=== PATIENT | male | born 1960 | race Caucasian/White ===

== ENCOUNTER 2024-07-12 02:14 | Observation (INO) | payer BC, SELFPAY ==
[2024-07-11 17:20] VITALS: BP 163/104
[2024-07-11] MEDS: NSS 1000 IV (18:29)
[2024-07-11] MEDS: ZOFRAN 4 MG IV (18:30)
[2024-07-11] MEDS: TORADOL 15 MG IV (18:30)
[2024-07-11 18:44] LABS: % Basophils 0.2 % (0-2); % Eosinophils 0.1 % (0-6); % Immature Granulocytes 0.3 % (0-0.5); % Lymphocytes 9.6 % (20.5-51.1); % Monocytes 5.8 % (1.7-9.3); Absolute Lymphocytes 1.4 10^3/uL (1.2-3.4); Absolute Monocytes 0.8 10^3/uL (0.1-0.6); Hematocrit 44.4 % (39.0-52.0); Mean Corp Hgb Conc. 33.8 g/dL (33.0-37.0); Mean Corpuscular Hgb 30.6 pg (27.0-31.0); Mean Corpuscular Volume 90.6 fL (80.0-94.0); Mean Platelet Volume 9.6 fL (7.4-10.4); Nucleated Red Blood Cells % 0 % (-); Platelet Count 217 10^3/uL (130-400); Red Cell Dist. Width 12.8 % (11.5-14.5); White Blood Cell Count 14.3 10^3/uL (4.8-10.8)
[2024-07-11 19:00] LABS: ALT (SGPT) 30 U/L (0-50); AST (SGOT) 32 U/L (17-59); Albumin 4.4 g/dl (3.5-5.0); Alkaline Phosphatase 77 U/L (38-126); Blood Urea Nitrogen 10 mg/dl (9-20); Calcium 9.2 mg/dl (8.4-10.2); Carbon Dioxide 24 mmol/L (22-30); Chloride 101 mmol/L (98-107); Glucose 114 mg/dl (70-99); Potassium 4.3 mmol/L (3.5-5.1); Sodium 134 mmol/L (135-145); Total Bilirubin 1.2 mg/dl (0.2-1.3); Total Protein 7.2 g/dl (6.3-8.2); eGFR > 60.00
--- NOTE | 2024-07-11 19:03 | ED.GENMED ---
History of Present Illness
General
Chief Complaint: Abdominal Pain
Source: patient and spouse
Exam Limitations: none
Time Seen by Provider: 07/11/24 18:10
Nursing documentation reviewed up to this point in time: agreed with
History of Present Illness
History of Present Illness:
64-year-old male presenting to the emergency department today with concerns of right-sided flank pain that was abrupt in onset earlier this morning. Now some pain of the abdomen some bloating some nausea no vomiting. Had similar symptoms a week
ago that seem to resolve on its own. Denies any chest pain shortness of breath fevers.
Review of Systems
Review of Systems
Allergies reviewed?: Yes
All Other Systems: ROS reviewed and negative except as documented in HPI and ROS
Phy Exam
Physical Exam
Physical Exam:
GENERAL: Alert , in no apparent distress
EYE: pupils equal and reactive
NECK: Supple, no significant adenopathy.
ENT: o/p clr, mmm.
CARDIAC: Regular rate and rhythm .
LUNGS: Clear breath sounds bilaterally, no acute respiratory distress, no wheezes/rales/rhonchi
ABDOMEN: Soft, without focal tenderness, no r/g, no cvat
NEUROLOGICAL: Alert and oriented, no focal neuro deficits
SKIN: Warm and dry, skin intact.
MUSCULOSKELETAL: No edema, well perfused.
PSYCH: Normal and appropriate interaction.
Course
Orders/Labs/Results
Orders:
Orders
07/11/24 17:24
EKG [Electrocardiogram (*1)] Urgent
Reason for Study: Abdominal Pain
EKG- Treatment ONCE
07/11/24 18:21
CT Abd/pel Without Iv Or Oral Urgent
Comment:
Reason For Exam: right flank pain
0.9% Sodium Chloride 1000 ml [Nss] 1,000 ml IV BOLUS
Ketorolac [Toradol] 15 mg IV NOW STA
Ondansetron Injectable [Zofran] 4 mg IV NOW STA
07/11/24 18:28
Complete Blood Count/With Diff Urgent
Comprehensive Metabolic Panel Urgent
07/11/24 20:17
Urinalysis Reflex To Culture Urgent
Date Specimen was Collected: 07/11/24
Time Specimen was Collected: 20:15
Urine Microscopic Reflex Cult Urgent
07/11/24 21:36
US Abdomen Complete/Upper Urgent
Comment:
Reason For Exam: abdnomal CT GB
07/11/24 23:56
CefTRIAXone [Rocephin] 2,000 mg IV NOW STA
MetroNIDAZOLE 500 MG/100 ML [Flagyl 500 mg] 100 ml IV NOW
Abnormal Lab Results
07/11/24 07/11/24
18:28 20:17
WBC 14.3 H 10^3/uL
(4.8-10.8)
Absolute Neuts (auto) 12.0 H 10^3/uL
(1.4-6.5)
Absolute Monos (auto) 0.8 H 10^3/uL
(0.1-0.6)
Neutrophils % 84.0 H %
(42.2-75.2)
Lymphocytes % 9.6 L %
(20.5-51.1)
Sodium 134 L mmol/L
(135-145)
Glucose 114 H mg/dl
(70-99)
Urine Ketones 3+ A
(Negative)
Ur Occult Blood Reflex 1+ A
(Negative)
Urine Albumin (Reflex) 1+ A
(Neg - Trace)
07/11/24 18:28
07/11/24 18:28
Vital Signs
Initial and Last Documented VS:
Initial Vital Signs
Temp Pulse Resp BP Pulse Ox
98.1 F 82 16 163/104 98
07/11/24 17:20 07/11/24 17:20 07/11/24 17:20 07/11/24 17:20 07/11/24 17:20
Last Documented Vital Signs
Temp Pulse Resp BP Pulse Ox
98.1 F 82 16 135/82 98
07/11/24 17:20 07/11/24 17:20 07/11/24 17:20 07/11/24 20:18 07/11/24 17:20
MDM/Problems Addressed
MDM/Problems Addressed:
64-year-old male presenting to the emergency department today with concerns of right flank discomfort described as sharp and abrupt earlier this morning. Otherwise some abdominal pain associated with the additional nausea no vomiting. Here patient
is uncomfortable but nothing reproducible. Labs and CT scan ordered for further assessment. CT scan showing possible cholecystitis. Ultrasound ordered for further assessment which showed also some inflammation to the gallbladder with concerns for
possible early acute cholecystitis. Patient did have some minimal symptoms on examination of the right upper quadrant but nothing severe on my assessed to admit for observation and surgical assessment.
*Critical Care Note
Total Time (30-74mins, 75-104mins- exclusive of procedures): Not Applicable
ED Attending Note
-
Portions of this chart may have been created with voice recognition software.� Occasional wrong word or��sound alike� substitutions may have occurred due to the inherent limitations of voice recognition software.
Discharge Plan
Departure
Patient Disposition: Admit
Date of Disposition: 07/12/24
Time of Disposition: 00:20
Admit to: Med/Surg
Admit to doctor: Memo
Presentation/result/management discussed w/ accepting MD/DO: Gen surgery
Patient with high blood pressure during this ER visit?: No
Condition: Good
Covid-19: Not Applicable
Discharge Problem:
Acute cholecystitis
Referrals:
Gay Collins MD [Family Provider] -
Interventions
Interventions:
*Risk Screen - Suicide Last Done: 07/11/24 17:20
*General Assessment Last Done: 07/11/24 18:11
*Neglect/Abuse Screening Last Done: 07/11/24 17:20
ED- Fall Risk Assessment Last Done: 07/11/24 18:11
YJ-Irpuqm-Eseavjxuoe Assessment Last Done: 07/11/24 18:11
Discharge Date and Time
Print Language: GREEK
--- NOTE | 2024-07-11 20:00 | EDRN ---
Report received, patient resting reports pain is better, aware he should go to CT shortly, was able to obtain a urine specimen
[2024-07-11 20:18] VITALS: BP 135/82; BMI 26.6
[2024-07-11 20:27] LABS: Urine Albumin 1+ (Neg - Trace); Urine Bilirubin Negative (Negative); Urine Character Clear (Clear); Urine Color Yellow; Urine Glucose Negative (Negative); Urine Ketone 3+ (Negative); Urine Leukocyte Negative (Negative); Urine Nitrite Negative (Negative); Urine Occult Blood 1+ (Negative); Urine Urobilinogen Negative (Neg - 1+)
[2024-07-11 20:35] LABS: Urine Mucus Few; Urine Red Blood Cell 0-2 /HPF (0-2); Urine Squamous Cell 0-2 /LPF (Few); Urine White Cell 0-2 /HPF (0-5)
[2024-07-12 00:20] VITALS: BP 164/94
[2024-07-12] MEDS: ROCEPHIN 2000 MG IV ×2 (00:25→22:04)
[2024-07-12] MEDS: FLAGYL 500 MG 100 IV ×4 (00:25→23:04)
--- NOTE | 2024-07-12 04:43 | HPS.HSE ---
Addendum entered and electronically signed by Yonny Frausto MD 07/13/24 09:02:
I saw and examined the patient independently.
The [facility] Specialist's note was reviewed and I agree with the note, assessment and plan except where noted below.
Comment: This is a 64-year-old male who presents with a 5-day history of intermittent postprandial right upper quadrant pain that became more constant over the past 1 to 2 days. Imaging, exam all consistent with acute cholecystitis.
Will plan for a laparoscopic cholecystectomy in the OR today.
N.p.o., IV fluids, IV antibiotics ordered.
Risks/Benefits/Alternatives, expected postoperative course and possible complications (bleeding, infection, injury to surrounding structures, acute/chronic pain) discussed at length. Patient wishes to proceed with surgery. All questions answered.
Consent obtained.
Addendum entered and electronically signed by ABHINAV Deluna 07/12/24 19:11:
Patient is male not female
Original Note:
Family Physician
-
Family Physician: Gay Collins
Chief Complaint
-
right flank pain
History of Present Illness
This is a 64 year old female who comes to the ED with right flank pain which started this morning along with nausea and bloating. Apparently a similar episode occured last week but resolved without intervention. No other associated symptoms such as
CP, SOB, dyspnea, vomiting, diarrhea or dysuria. Nothing made this episode better and pain with movement was worse.
Medical History
Past Medical History
Past Medical History: Reports None
Past Surgical History: Reports None
Social History
Tobacco: Non-smoker
Alcohol: Occasional
Drug: None
Personal:
Living: With Family
Employment: Retired
Family History
Family History: Hypertension
Allergies / Home Medications
Allergies reflects when Allergies were last updated in [employer].
Home Medications with original date entered in [employer]
Allergy/Medication List:
Allergies
Allergy/AdvReac Type Severity Reaction Status Date / Time
Penicillins Allergy Mild Unknown Verified 07/11/24 17:20
Home Medications
No Meds [No Current Medications] 07/12/24
Review of Systems
-
History Source: Coordinated Provider
A 12 point ROS was completed and negative except as noted: Yes
Constitutional: Reports No Symptoms
EENT: Reports No Symptoms
Respiratory: Reports No Symptoms
Cardiac: Reports No Symptoms
Abdomen/GI: Reports Abdominal Pain
: Reports No Symptoms
Musculoskeletal: Reports No Symptoms
Skin: Reports No Symptoms
Neurological: Reports No Symptoms
Endocrine: Reports No Symptoms
Hematologic/Lymphatic: Reports No Symptoms
Psych: Reports No Symptoms
Physical Exam
Vital Signs
Vital Signs
Temp Pulse Resp BP Pulse Ox
98.4 F 60 16 164/94 93
07/12/24 00:20 07/12/24 00:20 07/12/24 00:20 07/12/24 00:20 07/12/24 00:20
Physical Exam
General: Well Developed, Well Nourished, No Apparent Distress and Comfortable
HEENT: NormoCephalic, Moist mucous membranes and Atraumatic
Respiratory: Clear and Non Labored Respirations
Breast: Deferred by me
GI: Soft and Normal Bowel Sounds
Rectal: Deferred by Provider
Genito-urinary: Clear Urine
Musculoskeletal: No Clubbing, No Cyanosis and No Edema
Skin: Dry
Neuro: Alert, AO x 3 and No Motor Deficits
Hematologic/Lymphatic: No Lymphadenopathy
Psych: Calm
Laboratory Results
-
07/11/24 18:28
07/11/24 18:28
Laboratory Results
Total Bilirubin 1.2 mg/dl (0.2-1.3) 07/11/24 18:28
AST 32 U/L (17-59) 07/11/24 18:28
ALT 30 U/L (0-50) 07/11/24 18:28
Alkaline Phosphatase 77 U/L (38-126) 07/11/24 18:28
Data Reviewed
-
CT Scan: Report Reviewed by me
Ultrasound: Report Reviewed by me
Lab Data: Labs Reviewed by me
Impression/Plan
-
IMPRESSION: cholecystitis
PLAN: This is a 64 year old female who comes to the ED with right flank pain which started this morning along with nausea and bloating. Apparently a similar episode occured last week but resolved without intervention. No other associated symptoms
such as CP, SOB, dyspnea, vomiting, diarrhea or dysuria. Nothing made this episode better and pain with movement was worse.
*Cholecystitis: NPO, NS IVF, Metronidazole IV q 8H, one dose Rocephin given in ED. Morphine IV pain, Zofran IV prn nausea.
*HTN: Trend.
*DVT prophylaxis: SCDs, TEDs, oob
*Disposition: FC. General Surgery Service.
--- NOTE | 2024-07-12 05:52 | EDRN ---
Patient is sleeping at this time, will continue to monitor
[2024-07-12 06:59] VITALS: BP 142/70
[2024-07-12 12:00] VITALS: BP 146/87
--- NOTE | 2024-07-12 12:15 | PTCARENOTE ---
Receivbed pt from ER via stretcher, accompanied by ER staff. Pt AAO x3, LAIRD well, ambulatory to bed, no c/o weakness/dizziness. VSS. On room air- pulse ox 97%, no SOB noted. Abd soft, sl tender, pr to be NPO. pt c/o Rt mid-back discomfort
'2/10'; did not want prn pain med at this time. pt DTV; urinal at bedside; pt states he will void in BR. Thigh-high TEDS and SCDs at bedside; pt does not want at present; ambulatory. resting comfortably at present; at bedside. Plan of care
reviewed with pt. Will continue to monitor.
[2024-07-12 12:43] VITALS: BP 146/87
[2024-07-12 12:44] VITALS: BMI 25.3
[2024-07-12 15:05] VITALS: BP 142/83
--- NOTE | 2024-07-12 16:21 | PTCARENOTE ---
Pt resting quietly since arrival on unit. Ambulatory in room/lubin pham well. Pt c/o Rt mid- back discomfort '06/29' does not want pain med at this time. pt to start low fat diet; aware of NPO past midnight 07/13 for possible OR. Not wearing
TEDS/SCDs; Juan Carlos DUMONT aware; pt ambulatory. Voiding in BR without difficulty. Will continue to monitor.
[2024-07-12] MEDS: TORADOL 15 MG IV (20:28)
[2024-07-12] MEDS: STERILE WATER FOR INJECTION 20 ML IV (22:04)
[2024-07-12 23:16] VITALS: BP 137/79
[2024-07-13] VITALS (12 sets, daily range): BP systolic 112–154; BP diastolic 66–83
[2024-07-13 06:31] LABS: INR 1.11; PT 14.7 Sec (11.4-14.6)
[2024-07-13 06:37] LABS: % Basophils 0.4 % (0-2); % Eosinophils 2.4 % (0-6); % Immature Granulocytes 0.4 % (0-0.5); % Lymphocytes 16.6 % (20.5-51.1); % Monocytes 10.7 % (1.7-9.3); % Neutrophils 69.5 % (42.2-75.2); Absolute Eosinophils 0.2 10^3/uL (0-0.7); Absolute Lymphocytes 1.3 10^3/uL (1.2-3.4); Absolute Monocytes 0.8 10^3/uL (0.1-0.6); Absolute Neutrophils 5.3 10^3/uL (1.4-6.5); Hematocrit 40.9 % (39.0-52.0); Hemoglobin 13.6 g/dL (13.0-18.0); Mean Corp Hgb Conc. 33.3 g/dL (33.0-37.0); Mean Corpuscular Hgb 30.7 pg (27.0-31.0); Mean Corpuscular Volume 92.3 fL (80.0-94.0); Mean Platelet Volume 9.9 fL (7.4-10.4); Nucleated Red Blood Cells % 0 % (-); Platelet Count 191 10^3/uL (130-400); Red Blood Cell Count 4.43 10^6/uL (4.70-6.10); White Blood Cell Count 7.6 10^3/uL (4.8-10.8)
[2024-07-13 07:01] LABS: Blood Urea Nitrogen 14 mg/dl (9-20); Calcium 8.8 mg/dl (8.4-10.2); Carbon Dioxide 23 mmol/L (22-30); Chloride 103 mmol/L (98-107); Estimated Creatinine Clearance 100 ml/min; Glucose 98 mg/dl (70-99); Potassium 4.2 mmol/L (3.5-5.1); Sodium 134 mmol/L (135-145); eGFR > 60.00
[2024-07-13] MEDS: FLAGYL 500 MG 100 IV ×3 (08:01→23:05)
--- NOTE | 2024-07-13 09:02 | W.SUR.PREOP ---
Pre-Operative Surgical Note
-
I have examined this patient prior to the performance of the scheduled procedure.
The patient's condition is unchanged from the time of the current History and
Physical and the patient is able to undergo the scheduled procedure.
--- NOTE | 2024-07-13 12:42 | W.IMMPOSTOP ---
Surgical Immed Post Op Note
-
Primary Surgeon: Yonny Frausto MD
Assisting Surgeon: Faustino Ortiz MD (PGY 1)
Pre-op Diagnosis: Acute cholecystitis
Post-op Diagnosis: Same
Procedure Performed: Laparoscopic cholecystectomy with cholangiogram
Anesthesia Type: General
Specimen / Cultures: Gallbladder and contents
Estimated Blood Loss: 11 cc
Complications: None
Operative Findings: Acutely inflamed, distended gallbladder with hydrops and stone removed after ductotomy. Cholangiogram performed after achieving the critical view of safety. No distal filling defects and normal biliary anatomy.
POST OP PLAN:
Imaging: None
Labs: Routine AM
Diet: Advance to Regular as tolerated
Analgesia: Tylenol 650mg q6 Leticia, Radha 5mg q6 PRN, Dilaudid 0.5mg q2h PRN
Neuro/vascular checks: q4h
AC/AP: Hold Therapeutic AC, Ok for DVT PPx
Activity: Ad Abigail
Woun would continue antibiotics while admitted
Dispo: RNF, anticipate discharge today versus more likely tomorrow depending on clinical course.
--- NOTE | 2024-07-13 12:44 | OR.RPT ---
Operative Report
Operative Report
Patient Name: Demar Gomez
: 1960
Date of Operation: 07/13/2024
Preoperative Diagnosis: Acute cholecystitis
Postoperative Diagnosis: Same
Procedure(s):
Laparoscopic Cholecystectomy with Cholangiogram
Surgeon(s):
Dr. Frausto
Strategies Analyst(s):
Faustino Ortiz MD (PGY 1)
Anesthesia: General
Estimated Blood Loss: 11 cc
Urine Output: None
Drains/Lines/Implants: None
Specimens:
1. Gallbladder and contents
HPI/Surgical Indications:
This is a 64-year-old male who presents with 5 days of right upper quadrant abdominal pain. Exam, labs and imaging are consistent with acute cholecystitis. Risks/Benefits/Alternatives were discussed at length, and the patient agreed to proceed with
surgery.
Operative Findings: Acutely inflamed, distended gallbladder with hydrops and stone removed after ductotomy. Cholangiogram performed after achieving the critical view of safety. No distal filling defects and normal biliary anatomy.
Procedure Description:
The patient was brought to the Operating Room and placed in the supine position with one arm tucked. Following uneventful induction of general endotracheal anesthesia, an orogastric tube was placed. The abdomen was prepped and draped in the usual
sterile fashion. A timeout was performed confirming the procedure, consent, and that IV antibiotics were infused and sequential compression devices were confirmed to be on. The abdomen was entered using a left subcostal Veress technique which
required a single pass followed by a 5 mm right upper quadrant Optiview trocar. Pneumoperitoneum to 15 mmHg pressure was obtained without difficulty and we confirmed that no injury had occurred during our entry. The patient was positioned in
reverse Trendelenberg and rotated with the right side up slightly. Two 5 mm trocars were then placed along the right subcostal margin, followed by a 12 mm port in the epigastrium. The gallbladder was distended and somewhat contorted consistent
with active inflammation. A locking grasping forceps was placed on the fundus of the gallbladder where it was then retracted cephalad and to the right. Using appropriate grasping instruments, the peritoneum overlying the triangle of Calot was
incised and extended superiorly on both the anterior and posterior gallbladder lynne. The infundibulum was dissected off the cystic plate. The cystic triangle was dissected until a critical view of safety was achieved. The cystic artery was
medialized, dissected and controlled with 2 proximal clips and 1 distal. The cystic duct/gallbladder junction in turn was identified, dissected circumferentially and controlled proximally with a silk tie. A ductotomy was made and a stone with some
hydrops was evacuated. We did get backflow of bile. A cholangiocatheter on an Moya clamp was inserted into the cystic duct. A C-arm was draped and brought into the field. An intra-operative cholangiogram was performed and was noted to have:
No filling defects in the biliary tree
No significant biliary dilation
Brisk flow of contrast into the duodenum
Normal biliary anatomy
The catheter was then removed and the cystic duct was controlled with a clip followed by 0 PDS Endoloop. After ensuring both the artery and duct were divided, the gallbladder was freed from the liver using electrocautery. There was no spillage of
bile or stones. The gallbladder bed was inspected and excellent hemostasis was obtained. The gallbladder was extracted through the 12 mm trocar site using an endocatch bag. The abdomen was again irrigated and excellent hemostasis was assured. All
remaining trocars were then removed and the pneumoperitoneum was evacuated. The 12 mm trocar site was closed using 0 PDS suture. All trocar sites were closed at the skin level using 4-0 Monocryl followed by Dermabond. Overall, the patient
tolerated the procedure well and was taken to the Recovery Room postoperatively in stable condition.
I was the attending physician and performed the procedure with assistance from the resident above. I was present for all portions of the case, excluding skin closure.
Yonny Frausto MD
[2024-07-13] MEDS: ZOFRAN 4 MG IV (13:11)
[2024-07-13] MEDS: COMPAZINE 5 MG IV (13:31)
--- NOTE | 2024-07-13 14:06 | PTCARENOTE ---
Returned from OR post lap zaki with 5 lap sites CDI. Complains of nausea, Compazine and zofran given in PACU before arrival to floor. No complaints of pain.
[2024-07-13] MEDS: TORADOL 15 MG IV ×2 (16:36→23:04)
--- NOTE | 2024-07-13 16:53 | CM ---
Pt was in OR for cholecystectomy and CM was unable to complete IA today. Will follow up in AM.
--- NOTE | 2024-07-13 18:35 | PTCARENOTE ---
Patient reports discomfort after eating dinner and would like to stay overnight. floatman surgeon notified. at bedside. PRN toradol given.
[2024-07-13] MEDS: ROCEPHIN 2000 MG IV (23:04)
[2024-07-13] MEDS: STERILE WATER FOR INJECTION 20 ML IV (23:04)
[2024-07-14 03:35] VITALS: BP 108/55
--- NOTE | 2024-07-14 07:58 | PTCARENOTE ---
Spoke to Dr. Frausto regarding discharge. No changes to discharge instructions and patient may be discharged and is medically clear. Vital signs stable. Reviewed discharge instructions with patient. Patient verbalizes understanding and denies
questions at this time. IV removed. Patient awaiting to transport home.
[2024-07-14 08:09] VITALS: BP 136/76
--- NOTE | 2024-07-14 08:34 | W.PN.GS2 ---
Today's Communication / Plan
-
Dispo planning
Assessment / Plan
-
This is a 64-year-old male who presented with acute cholecystitis. Now POD #1 laparoscopic cholecystectomy with cholangiogram. Doing well, expected postoperative course.
Time Spent
Total Time Spent with Patient (in minutes): 20
Subjective Data
-
Date of Service: July 14, 2024
Interval Events:
No acute events overnight, patient stayed secondary to discomfort which is now resolved. Slept well. Pain Controlled. Denies Nausea/Vomiting, +bowel function. Tolerating diet.
Objective Data
-
Intake and Output
07/13/24 07/14/24 07/15/24
06:59 06:59 06:59
Intake Total 500 / 500 555 / 555
Balance 500 / 500 555 / 555
Intake:
Oral fluids 200 / 200 480 / 480
IV fluids (Total) 75 / 75
normosol 75 / 75
IV piggybacks 300 / 300
Other:
Number of approximated MODERATE 1 2
amounts of urine
Number of approximated LARGE 3
amounts of urine
Vital Signs
Temp Pulse Resp BP Pulse Ox
97.5 F 61 18 136/76 97
07/14/24 08:09 07/14/24 08:09 07/14/24 08:09 07/14/24 08:09 07/14/24 08:09
Lab Results
07/13/24 06:13
07/13/24 06:13
Calcium 8.8 mg/dl (8.4-10.2) 07/13/24 06:13
Total Bilirubin 1.2 mg/dl (0.2-1.3) 07/11/24 18:28
AST 32 U/L (17-59) 07/11/24 18:28
ALT 30 U/L (0-50) 07/11/24 18:28
Alkaline Phosphatase 77 U/L (38-126) 07/11/24 18:28
Total Protein 7.2 g/dl (6.3-8.2) 07/11/24 18:
Albumin 4.4 g/dl (3.5-5.0) 07/11/24 18:28
Physical Exam
-
GENERAL/NEURO: Awake, Alert, no distress
CHEST: Unlabored breathing on RA
ABDOMEN: Soft, Non-Tender, Non-Distended, incisions clean dry and intact
Patient has a oro catheter: No
Patient has a central line: No
[2024-07-14] MEDS: FLAGYL 500 MG IV (09:06)
== END 2024-07-14 10:38 | disposition home or self-care (01) ==
LOC: 4 EAST ACU 02:14
PROVIDERS: Physician Assistant; Surgery; ADMITTING PHYSICIAN Surgery; EMERGENCY PHYSICIAN Emergency Medicine; FAMILY PHYSICIAN Family Medicine
PROC: 0FT44ZZ Resection of Gallbladder, Percutaneous Endoscopic Approach (ICD-10-PCS; 2024-07-13)
PROC: BF141ZZ Fluoroscopy of Gallbladder, Bile Ducts and Pancreatic Ducts using Low Osmolar Contrast (ICD-10-PCS; 2024-07-13)
DX: K81.0 Acute cholecystitis (principal); R10.9 Unspecified abdominal pain; I10 Essential (primary) hypertension; K82.8 Other specified diseases of gallbladder; N28.1 Cyst of kidney, acquired; N40.0 Benign prostatic hyperplasia without lower urinary tract symptoms; Z88.0 Allergy status to penicillin
CPT/HCPCS: 88304; 74176; 74300; 76000; 76700; 80048; 80053; 81003; 81015; 85025; 85610; 86850; 86900; 86901; 93005; 96361; 96365; 96366; 96375; 99285; A4300; G0378